=== PATIENT | female | born 1940 | race Caucasian/White ===

== ENCOUNTER 2021-12-10 11:15 | Outpatient (RCR) | payer MEDICARE, OTHER, SELFPAY | END 2022-06-11 10:53 | disposition home or self-care (01) | PROVIDERS: PCP Family Medicine; Visit Provider Orthopaedic Surgery | DX: M25.572 Pain in left ankle and joints of left foot (principal); R26.9 Unspecified abnormalities of gait and mobility; Z51.89 Encounter for other specified aftercare | CPT/HCPCS: 97110; 97140 ==

== ENCOUNTER 2022-01-25 10:48 | Outpatient (CLI) | payer MEDICARE, OTHER, SELFPAY ==
--- OUTSIDE RECORDS SUMMARY | 2022-01-25 10:51 | XMS_ITS | Encounter Summary ---
:1940 Author Organization [facility] Address [address] [place] [address] Care Team Providers Name Role Phone Unavailable Primary Care Provider Unavailable Reason for Visit Outpatient (Routine) - Closed Specialty Diagnoses / Procedures Referred By Contact Refer red To Contact Ophthalmology Laura Ho M.D . [place] [address] [place], [place] [address] Referral ID Status Reason Start Date Expiration Date Visits Requ ested Visits Authorized [id number] Closed 06/15/2021 06/15/2022 1 1 Encounter Details Date Type Department Care Team Description 12/03/2021 Office Visit Department of Softing [place], Nonexudativ e Ophthalmology in Keeley Hernandez O.D. Age-Related Macular [place], [place] [address] [facility] Degeneration Early [address] [place], [place] [address] (Primary Dx) [id number] Social History Tobacco Use Types Packs/Day Years Used Date Smoking Tobacco: Never Smokeless Tobacco: Never Alcohol Habits Answer Date Recorded How often do you have a drink containing alcohol? Monthly or less 05/10/2021 How many drinks containing alcohol do you have on a 1 or 2 05/10/2021 typical day when you are drinking? How often do you have six or more drinks on one Never 05/10/2021 occasion? Comment: Not asked Social Isolation Answer Date Recorded In a typical week, how many times do you More than three yen es a week 05/10/2021 talk on the phone with family, friends, or neighbors? How often do you get together with friends Twice a week 05/10/2021 or relatives? How often do you attend druze or 1 to 4 times per year 12/2021 nondenominational services? Do you belong to any clubs or Yes 05/10/2021 organizations such as druze groups, unions, fraternal or athletic groups, or school groups? How often do you attend meetings of the More than 4 times pe r year 05/10/2021 clubs or organizations you belong to? Are you now , , , 05/10/2021 , never or living with a partner? Physical Activity Answer Date Recorded On average, how many days per week do you engage in moderate to 2 days 05/10/2021 strenuous exercise (like walking fast, running, jogging, dancing, swimming, biking, or other activities that cause a light or heavy sweat)? On average, how many minutes do you engage in exercise at th is 30 min 05/10/2021 level? Stress Answer Date Recorded Do you feel stress - tense, restless, nervous, or Only a lit tle 05/10/2021 anxious, or unable to sleep at night because your mind is troubled all the time - these days? Financial Resource Strain Answer Date Recorded How hard is it for you to pay for the very basics like Not h ana m at all 05/10/2021 food, housing, medical care, and heating? Intimate Partner Violence Answer Date Recorded Within the last year, have you been afraid of your partner o r No 05/10/2021 ex-partner? Within the last year, have you been humiliated or emotionall y No 05/10/2021 abused in other ways by your partner or ex-partner? Within the last year, have you been kicked, hit, slapped, or No 05/10/2021 otherwise physically hurt by your partner or ex-partner? Within the last year, have you been raped or forced to have any No 05/10/2021 kind of sexual activity by your partner or ex-partner? Food Insecurity Answer Date Recorded Within the past 12 months, you worried that your food would Never true 05/10/2021 run out before you got money to buy more. Within the past 12 months, the food you bought just didn't N ever true 05/10/2021 last and you didn't have money to get more. Transportation Needs Answer Date Recorded In the past 12 months, has lack of transportation kept you f rom No 05/10/2021 medical appointments or from getting medications? In the past 12 months, has lack of transportation kept you f rom No 05/10/2021 meetings, work, or getting things needed for daily living? Housing Stability Answer Date Recorded In the last 12 months, was there a time when you were not ab le No 05/10/2021 to pay the mortgage or rent on time? In the last 12 months, how many places have you lived? 2 05/10/2021 In the last 12 months, was there a time when you did not hav e a No 05/10/[address] to [address] or slept in a senior care (including now)? Education Answer Date Recorded What is the highest level of school you have Some college, n o degree 05/10/2021 completed or the highest degree you have received? 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 - 12/03/2021 10:00 AM CDT Shannan Smallwood was seen today for age-related macular degeneration. 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 No fluid seen on either eye today, vision stable Plan 11/2021 Use artificial tears while reading. Follow-up in 5 months with OCT both eyes with Dr Cuellar/retina PLEASE SCHEDULE ANYTIME AFTER 11AM. - monitor for wet age-related macular degeneration recurrence documented in this encounter Plan of Treatment Not on filedocumented as of this encounter Visit Diagnoses Diagnosis Nonexudative Age-Related Macular Degener ation Early Dry Stage Bilateral - Primary documented in this encounter
--- OUTSIDE RECORDS SUMMARY | 2022-01-25 10:51 | XMS_ITS | Encounter Summary ---
:1940 Author Organization [facility] Address [address] [place] [address] Care Team Providers Name Role Phone Unavailable Primary Care Provider Unavailable Encounter Details Date Type Department Care Team Description 09/17/2021 Clinical Communication Department of Polo Beckham, Ophthalmology in Keeley Hernandez O.D. [place], [place] [address] [facility] [address] [place] [id number] [phone] Social History Tobacco Use Types Packs/Day Years [...] or relatives? How often do you attend buddhist or 1 to 4 times per year 12/2021 mandaen services? Do you belong to any clubs or Yes 05/10/2021 organizations such as buddhist groups, unions, fraternal or athletic groups, or [...] minutes do you engage in exercise at is 30 min 05/10/2021 level? Stress Answer [...] place to sleep or slept in a skilled nursing (including now)? Education Answer Date Recorded What is the highest level of school you have Some college, n o degree 05/10/2021 completed or the highest degree you have received? 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 If anything opens up let pt know Thanks documented in this encounter Plan of Treatment Not on filedocumented as of this encounter Visit Diagnoses Not on filedocumented in this encounter
--- OUTSIDE RECORDS SUMMARY | 2022-01-25 10:51 | XMS_ITS | Clinical Summary ---
:1940 Author Organization [facility] [place] [address] Care Team Providers Name Role Phone Elbert Jameson Primary Care Provider Unavailable Allergies Active Allergy Reactions Severity Noted Date Comments Amoxicillin Nausea Only 05/12/2021 nausea Crab GI Upset, Headache 08/01/1975 Shellfish Derived GI Upset 09/14/2013 Medications Medication Sig Dispensed Refills Start End Date Status Date calcium carbonate Take 1 Tablet by 0 Active (OS-LILLY 500) 500 mg mouth once daily. calcium (1,250 mg) tablet diclofenac topical Apply 1 Inch 0 Active (VOLTAREN) 1 % gel topically to 0 affected area(s) 4 times daily. vitamin e 400 unit Take 400 units by 0 Active capsule mouth once daily. aspirin (ECOTRIN) 81 mg Take 1 Tablet (81 0 07/01/19 2 Active enteric coated tablet mg) by mouth once 2 daily with a meal. atorvastatin (LIPITOR) Take 1 Tablet (10 90 Tablet 3 Active 10 mg tabletIndications: mg) by mouth once 2 Hypercholesterolemia daily. lisinopriL (PRINIVIL; Take 1 Tablet (30 90 Tablet 3 Active ZESTRIL) 30 mg mg) by mouth once 2 tabletIndications: HTN daily. (hypertension) verapamil SR (CALAN SR) Take 1 Tablet (120 90 Tablet 3 02 Active 120 mg Sustained-Release mg) by mouth once 2 tabletIndications: HTN daily with a meal. (hypertension), Mild For hypertension mitral valve prolapse levothyroxine Take 1 Tablet (100 90 Tablet 3 Active (SYNTHROID) 100 mcg mcg) by mouth once 2 tabletIndications: daily. For Hypothyroidism hypothyroidism (acquired) famotidine (PEPCID) 40 Take 1 Tablet (40 180 Tablet 3 11/18/19 2 Active mg tabletIndications: mg) by mouth in 2 Chronic GERD the morning and 1 Tablet (40 mg) in the evening. For GERD. cetirizine (ZYRTEC) 10 Take 1 Tablet (10 90 Tablet 3 Active mg tabletIndications: mg) by mouth once 2 Allergic rhinitis, daily. For unspecified seasonality, allergic rhinitis unspecified trigger polyethylene Drink up to 7 8000 mL 0 Act mateo glycol-electrolyte liters the day 2 (GOLYTELY) before the [id number] -5.86 procedure (until gram no solid or liquid suspensionIndications: stool present) and Positive colorectal 1 liter 6 hours cancer screening using prior. Cologuard test Active Problems Problem Noted Date History of malignant melanoma 07/16/2021 History of cervical cancer 07/16/2021 CVA (cerebral vascular accident) 06/30/2021 HTN (hypertension) 06/26/2021 Post herpetic neuralgia 06/26/2021 Hypothyroidism (acquired) 06/26/2021 Chronic GERD 06/26/2021 Hypercholesterolemia 06/26/2021 Nonexudative age-related macular degeneration 06/15/19 Mild mitral valve prolapse 06/25/2014 Peripheral vertigo involving left ear 06/25/2014 Allergic rhinitis 06/25/2014 Encounters Date Type Specialty Care Team Description 01/22/2022 Nurse/Clinic Staff Only covi d test (Pre op) 01/22/2022 Travel 12/30/2021 Telephone Elbert Jameson Appointme nt Reminder (Colonoscopy) 12/23/2021 Orders Only Scanner <No scans attac hed> 12/02/2021 Telephone Ifeoma Whitley Colorectal Cancer MD Nery Screening (Shandon guard sample could no t be processed ) 11/19/2021 Telephone Ifeoma Whitley Form MD Nery 11/17/2021 Telemedicine Ifeoma Whitley Telehealth (No vitals MD Nery taken); Follow Up; Medication Patsy gement; Ankle Injury (L eft ankle fracture, DOI: 07/24/21); Knee Pain/problem (L eft knee swelling a nd pain, appointme nt with Dr. Benjamin 11/23) 11/14/2021 Travel from Last 3 Months Immunizations Name Administration Dates Next Due COVID-19 vaccine (Moderna 100mcg/0.5mL) 05/14/2021, 06/27/19 21, 05/30/2020 PF, MDV Influenza, High-dose Quadrivalent 05/14/2021, 01/08/2020 Inactivated Pneumococcal Poly,23-Valent (Pneumovax) 07/21/2013, 04/12/20 12 Pneumococcal conj 13-Valent (Prevnar 13) 07/30/2014 Tdap 07/30/2014 Zoster (Shingrix-RZV, recombinant) 10/15/2019, 07/08/2019, 0 06/02/2019 Family History Medical History Relation Name Comments Coronary artery disease Father Heart attack Father Hyperlipidemia Father Stroke Father Cancer-breast Mother Good Health Sister Relation Name Status Comments Father Mother Sister Alive Social History Tobacco Use Types Packs/Day Years Used Date Never Smoker Smokeless Tobacco: Never Used Alcohol Use Standard Drinks/Week Comments Not Currently 0 (1 standard drink = 0.6 oz pure alcoho l) Sex Assigned at Date Recorded Not on file COVID-19 Exposure Response Date Recorded In the last 10 days, have you been in contact with No / Unsu re 01/22/2022 9:24 AM CDT someone who was confirmed or suspected to have Coronavirus/COVID-19? 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 Height 166.4 cm (5' 5.5) 06/30/2021 1:59 PM MASTER CRAFTSMAN Body Mass Index 30.63 06/30/2021 1:59 PM MASTER CRAFTSMAN Plan of Treatment Health Maintenance Due Date Last Done Comments Hepatitis C screening for age 18-79 1958 COVID-19 vaccine series (4 - Booster 09/11/2021 05/14/2021, 06/27/2020, for Moderna series) 05/30/2020 Influenza for age 65+ 12/31/2021 05/14/2021, 01/08/2020 BMI (ht and wt on same day) for age 0306/30/2022 06/30/2021 18+ Medicare Wellness for age 65+ 06/30/2022 06/30/2021 Depression screening for age 12+ 07/01/2022 07/01/2021, 05/2021 Tetanus booster 07/30/2024 07/30/2014 Pneumococcal series for age 65+ Completed 07/30/2014, 07/01, 04/12/2012 Tdap Completed 07/30/2014 Zoster (shingles) series for age 50+ Completed 10/15/2019, 07/08/2019, 06/02/2019 DEXA/DXA scan for age 65+ Completed 07/01/2021 Procedures Procedure Name Priority Date/Time Associated Diagnosis Comme nts COVID 19 Routine 01/22/2022 9:30 AM Preop examination Resu lts for this CDT procedure are i n the results section. COVID 19 COLLECTION Routine 01/22/2022 9:30 AM Preop examinati on Results for this CDT procedure are i n the results section. SCAN-FECAL TEST DNA 12/23/2021 12:00 (COLOGUARD) AM CDT from Last 3 Months Results COVID 19 (01/22/2022 9:30 AM CDT) Analysis Performed At Patho logist Time Signature COVID 19 Negative Negative 01/23/2022 [facility] 7[facility]19 PM CDT LAB[facility] Specimen Anatomical Location / Collection Method Collection David e Received Time (Source) Laterality / Volume Other SPECIMEN FROM Non-Blood / 01/22/2022 9:30 01/23/2022 7:59 NASOPHARYNGEAL Unknown AM CDT AM CDT STRUCTURE / Unknown Narrative [facility] One[facility] On Me (NOOM) LABORATORY-CENTRAL LABORAT ORY - 01/23/2022 7:19 PM CDT All PCR tests are subject to false negative result due to variability in viral load and collection te chnique. A negative result does not rule out a SARS-CoV-2 infection. Clinical correlation required. This test has been authorized by FDA und er an Emergency Use Authorization (EUA). This test is only authorized for the duration of time the declaration that circumstances exist justifying the authorizati on of the emergency use of in vitro diag nostic tests for detection of SARS-CoV-2 virus and/or diagnosis of COVID-19 infection under section 564(b)(1) of the Act, 21 U.S.C. 360bbb-3(b) (1), unless the authorization is terminated or revoked sooner. Yordy Wyatt MD MICROBIOLOGY Performing Organization Address City/[facility]/ZIP Code Phon e Number [id number] [place] [id number] LABORATORY-CENTRAL 2000 LABORATORY COVID 19 COLLECTION (01/22/2022 9:30 AM CDT) [facility] Method Time Signature TESTING [facility] [employer] 01/23/2022 [facility] Laboratory 7:59 AM CDT LABORATORY-CE NTRAL LABORATORY Comment: Specimen submitted to [facility] for testing. Specimen Anatomical Location / Collection Method Collection David e Received Time (Source) Laterality / Volume Other SPECIMEN FROM Non-Blood / 01/22/2022 9:30 01/22/2022 NASOPHARYNGEAL Unknown AM CDT 10:09 AM CDT STRUCTURE / Unknown Yordy Wyatt MD SEND OUTS Performing Organization Address [facility] Phon e Number [id number] [place] [id number] LABORATORY-CENTRAL 2000 LABORATORY SCAN-FECAL TEST DNA (COLOGUARD) (12/23/2021 12:00 AM CDT) Narrative This result has an attachment that is no t available. Scanner OTHER from Last 3 Months Insurance Payer Benefit Plan / Subscriber ID Effective Dates Phone Addre ss Type Group MEDICARE - PB MEDICARE PB [id number] 2007-Present ATT N: CLAIMS USE ONLY ONLY [address] [place] [address] FOR [id number] 2015-Present [address] [place] [address] Care Teams Optical Instrument Assembler Relationship Specialty Start Date End Date Elbert Jameson PCP - General 06/23/21
--- OUTSIDE RECORDS SUMMARY | 2022-01-25 10:51 | XMS_ITS | Encounter Summary ---
:1940 Author Organization [facility] Address [address] [place] [address] Care Team Providers Name Role Phone Unavailable Primary Care Provider Unavailable Reason for Visit Reason Comments Pre-visit Testing Orders Appointment Encounter Details Date Type Department Care Team Description 04/13/2021 Clinical Department of Laura Ho Pre-visit Inez rebolledo Communication Ophthalmology in Peng Cordero Orders; [place], [place] [address] [facility] Appointment [address] [place] [phone] [phone] Social History Tobacco Use Types Packs/Day Years Used Date Smoking Tobacco: Never Assessed Alcohol Habits Answer Date Recorded How often [...] or relatives? How often do you attend congregation or 1 to 4 times per year 12/2021 mormonism services? Do you belong to any clubs or Yes 05/10/2021 organizations such as congregation groups, unions, fraternal or athletic groups, or [...] place to sleep or slept in a mcc (including now)? 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 HOUSE ASSOCIATE Telephone Encounter - Raul Chery - 04/14/2021 4:45 PM CST Aide Ho, Currently there is no available testing to make this week work. I spoke with patient and they indicated 05/11 would work for testing and 05/12 would work to see you. Can I schedule for that timeframe? Thanks! - AJ HOUSE ASSOCIATE Telephone Encounter - Raul Chery - 04/14/2021 10:03 AM CST Aide Ho, Scheduling will not fit within 10 Day SOP Guideline. Should I schedule 1st available or do you have a different preference? Thanks! - AJ HOUSE ASSOCIATE Telephone Encounter - Shalini Mayen COMT - 04/14/2021 9:51 AM CST Orders are in. It's okay to click the high importance button for a new referred wet age-related macular degeneration. Thanks. HOUSE ASSOCIATE Telephone Encounter - Raul Chery - 04/13/2021 4:39 PM CST The following tests need order proxies for Indication for the order: Degeneration Macular Wet Exudative The following eye(s) affected: Left FA [place]; Fundus Standard; OCT Spectralis Please reply to me when order is placed. Thank you! Check the patient's chart to verify if this would be a first Fluoresceine Angiogram (FA). Ask each NEW patient and any RETURN patients that do not have these questions/responses documented in the chart: 1. Have you been diagnosed with Kidney Disease? Yes - Patient is currently in stage 3 Kidney Failurewith elevated levels staying the same. 2. Are you on dialysis? No HOUSE ASSOCIATE documented in this encounter Plan of Treatment Not on filedocumented as of this encounter Visit Diagnoses Not on filedocumented in this encounter
--- OUTSIDE RECORDS SUMMARY | 2022-01-25 10:51 | XMS_ITS | Encounter Summary ---
:1940 Author Organization [facility] Address [address] [place] [address] Care Team Providers Name Role Phone Unavailable Primary Care Provider Unavailable Encounter Details Date Type Department Care Team Description 05/11/2021 Ancillary Department of Laura Ho Exudjennifer Procedure Ophthalmology bryanna Cordero M.D. Age-Related Macular [place], [place] [address] [email or web address] Degeneration [address] [place], [place] [address] Right ([facility]) [phone] Social History Tobacco Use Types Packs/Day Years [...] or relatives? How often do you attend sabianism or 1 to 4 times per year 12/2021 confucianist services? Do you belong to any clubs or Yes 05/10/2021 organizations such as sabianism groups, unions, fraternal or athletic groups, or [...] for the very basics like Not h aan m at all 05/10/2021 food, housing, medical [...] place to sleep or slept in a penitentiary (including now)? Education Answer Date Recorded What is the highest level of school you have Some college, n o degree 05/10/2021 completed or the highest degree you have received? 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 documented in this encounter Results Optical Coherence Tomography (OCT) - Macula/Retina - OU - Both Eyes (05/11/2021 4:24 PM CANDY VENDOR) Specimen (Source) Anatomical Location Collection Method / Collectio n Time Received Time / Laterality Volume Narrative OPHTHALMOLOGY IMAGING EXAM - 05/12/19 3:01 PM CANDY VENDOR Right Eye Reliability was good. OCT device used [employer] . Left Eye Reliability was good. OCT device used [employer] . Notes OCT macula 05/11/21: RE: drusen, no fluid LE: drusen, drusenoid PED, no fluid Laura Ho M.D. OPHTH TOMOGRAPHY Performing Organization Address City/State/ZIP Code Phon e Number OPHTHALMOLOGY IMAGING EXAM documented in this encounter Visit Diagnoses Diagnosis Exudative Age-Related Macular Degenerati on Unspecified Stage Right (HCC) documented in this encounter
--- OUTSIDE RECORDS SUMMARY | 2022-01-25 10:51 | XMS_ITS | Encounter Summary ---
:1940 Author Organization [facility] Address [address] [place] [address] Care Team Providers Name Role Phone Unavailable Primary Care Provider Unavailable Encounter Details Date Type Department Care Team Description 05/11/2021 Procedure visit Department of Bakdonnell, Laura Cordero M.D. [address] [place] [phone] Exudative Age-Related Ophthalmology in [place] Macular Degeneration [place], [place] Unspecified Stage [address] [facility] Right ([facility] [place] [address] Social History Tobacco Use Types Packs/Day Years [...] or relatives? How often do you attend advent or 1 to 4 times per year 12/2021 protestant services? Do you belong to any clubs or Yes 05/10/2021 organizations such as advent groups, unions, fraternal or athletic groups, or [...] place to sleep or slept in a fdc (including now)? Education Answer Date Recorded What is the highest level of school you have Some college, n o degree 05/10/2021 completed or the highest degree you have received? Sex Assigned at Date Recorded Female 05/10/2021 3:14 PM BIBLE TEACHER documented as of this encounter Progress Notes Peter Bloom - 05/11/2021 2:00 PM CST Patient was assessed for Angiogram. Verified education and informed consent has been completed. Patient fits discharge criteria; patient sent to have IV removed. Dr. RODRIGUEZ is the authorizing prescriber who directed the protocol. Patient's creatinine level is NA Adverse reaction noted: NONE. E TEACHER documented in this encounter Plan of Treatment Not on filedocumented as of this encounter Procedures Procedure Name Priority Date/Time Associated Diagnosis Comme nts ANGIOGRAPHY - OS - Routine 05/11/2021 4:24 PM Exudative Age-Re lated Results for this LEFT EYE BIBLE TEACHER Macular Degeneration procedu re are in Unspecified Stage the result s Right (HCC) section. documented in this encounter Results Fluorescein Angiography - OS - Left Eye (05/11/2021 4:24 PM BIBLE TEACHER) Specimen (Source) Anatomical Location Collection Method / Collectio n Time Received Time / Laterality Volume Narrative OPHTHALMOLOGY IMAGING EXAM - 05/12/19 22 8:41 AM BIBLE TEACHER Dye used is fluorescein. Fluorescein dose given is half dose. Notes See clinical note from 05/12/2021 ??for i nterpretation. Laura Rodriguez MD Laura Rodriguez M.D. OPHTH PHOTOGRAPHY Performing Organization Address City/State/ZIP Code Phon e Number OPHTHALMOLOGY IMAGING EXAM documented in this encounter Visit Diagnoses Diagnosis Exudative Age-Related Macular Degenerati on Unspecified Stage Right (HCC) Exudative Age-Related Macular Degenerati on Unspecified Stage Right (HCC) - Primary documented in this encounter Administered Medications Inactive Administered Medications - up to 3 most recent administrations Medication Order MAR Action Action Date Dose Rate Site fluorescein 500 mg/5 mL (10 %) Given 05/11/2021 4:06 PM BIBLE TEACHER 250 mg injection 250 mg (AK-FLUOR/FLUORESCEIN) 250 mg, intravenous, Once in imaging, contrast, Starting on Tue04/14/21 at 0950, For 1 dose, IV push over 5 - 10 seconds sodium chloride 0.9 % injection 3 mL Given 05/11/2021 4:05 PM BIBLE TEACHER 3 mL 3 mL, intravenous, Once, On Tue05/11/21 at 0000, For 1 dose, Frequency: As needed for line care, Peripheral Intravenous Catheter and Rapid Infusion Catheter documented in this encounter
--- OUTSIDE RECORDS SUMMARY | 2022-01-25 10:51 | XMS_ITS | Encounter Summary ---
:1940 Author Organization [facility] Address [address] [place] [address] Care Team Providers Name Role Phone Unavailable Primary Care Provider Unavailable Encounter Details Date Type Department Care Team Description 05/11/2021 Silent Schedule Department of Ophthalmology Arelis Ho in [facility] Khoury [address] [facility] [address] [place], [place] [phone] [place], [place] [phone] (Wo rk) Social History Tobacco Use Types Packs/Day Years [...] or relatives? How often do you attend bahai or 1 to 4 times per year 12/2021 judaism services? Do you belong to any clubs or Yes 05/10/2021 organizations such as bahai groups, unions, fraternal or athletic groups, or [...] place to sleep or slept in a intermediate (including now)? Education Answer Date Recorded What is the highest level of school you have Some college, n o degree 05/10/2021 completed or the highest degree you have received? Sex Assigned at Date Recorded Female 05/10/2021 3:14 PM CLOTHING CONSULTANT documented as of this encounter Plan of Treatment Not on filedocumented as of this encounter Procedures Procedure Name Priority Date/Time Associated Diagnosis Comme nts ANGIOGRAPHY - OD - Routine 05/11/2021 4:24 PM Exudative Age-Re lated Results for this RIGHT EYE CLOTHING CONSULTANT Macular Degeneration procedu re are in Unspecified Stage the result s Right (HCC) section. documented in this encounter Results Fluorescein Angiography - OD - Right Eye (05/11/2021 4:24 PM CLOTHING CONSULTANT) Specimen (Source) Anatomical Location Collection Method / Collectio n Time Received Time / Laterality Volume Narrative OPHTHALMOLOGY IMAGING EXAM - 05/12/19 22 8:41 AM CLOTHING CONSULTANT Dye used is fluorescein. Fluorescein dose given is half dose. Notes See clinical note from 05/12/2021 ??for i nterpretation. Laura Ho MD Laura Ho M.D. OPHTH PHOTOGRAPHY Performing Organization Address City/State/ZIP Code Phon e Number OPHTHALMOLOGY IMAGING EXAM documented in this encounter Visit Diagnoses Not on filedocumented in this encounter
--- OUTSIDE RECORDS SUMMARY | 2022-01-25 10:51 | XMS_ITS | Encounter Summary ---
:1940 Author Organization [facility] Address [address] [place] [address] Care Team Providers Name Role Phone Unavailable Primary Care Provider Unavailable Encounter Details Date Type Department Care Team Description 04/20/2021 Orders Only Department of Mamie Dos Santos Exudative Age-Related Ophthalmology in K Macular Degeneration With [place], [place] [address] [facility] Active Choroidal [address] [place], [place] [address] ([facility]ERLY [facility]) (Primary Dx) [phone] Social History Tobacco Use Types Packs/Day Years [...] or relatives? How often do you attend uatsdin or 1 to 4 times per year 12/2021 buddhism services? Do you belong to any clubs or Yes 05/10/2021 organizations such as uatsdin groups, unions, fraternal or athletic groups, or [...] place to sleep or slept in a fci (including now)? 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
--- OUTSIDE RECORDS SUMMARY | 2022-01-25 10:51 | XMS_ITS | Encounter Summary ---
:1940 Author Organization [facility] Address [address] [place] [address] Care Team Providers Name Role Phone Unavailable Primary Care Provider Unavailable Encounter Details Date Type Department Care Team Description 12/03/2021 Ancillary Department of Laura Ho Procedure Ophthalmology in Peng Cordero Age-Related Macular [place], [place] [address] [facility] Degeneration Early [address] [place], [place] [phone] Social History Tobacco Use Types Packs/Day Years [...] or relatives? How often do you attend catholic or 1 to 4 times per year 12/2021 zoroastrian services? Do you belong to any clubs or Yes 05/10/2021 organizations such as catholic groups, unions, fraternal or athletic groups, or [...] place to sleep or slept in a chcf (including now)? Education Answer Date Recorded What is the highest level of school you have Some college, n o degree 05/10/2021 completed or the highest degree you have received? Sex Assigned at Date Recorded Female 05/10/2021 3:14 PM BMW SALES CONSULTANT documented as of this encounter Plan of Treatment Not on filedocumented as of this encounter Procedures Procedure Name Priority Date/Time Associated Diagnosis Comme nts OPTICAL COHERENCE Routine 12/03/2021 11:08 Nonexudative Result s for this TOMOGRAPHY - AM CDT Age-Related Macular procedur e are in MACULA/RETINA - OU Degeneration Early the results - BOTH EYES Dry Stage Bilateral section. documented in this encounter Results Optical Coherence Tomography (OCT) - Macula/Retina - OU - Both Eyes (12/03/2021 11:08 AM CDT) Specimen (Source) Anatomical Location Collection Method / Collectio n Time Received Time / Laterality Volume Narrative OPHTHALMOLOGY IMAGING EXAM - 12/04/19 22 11:43 AM CDT Right Eye Reliability was good. OCT device used Startlocal . Left Eye Reliability was good. OCT device used Startlocal . Notes See note for results Laura Ho M.D. OPHTH TOMOGRAPHY Performing Organization Address City/State/ZIP Code Phon e Number OPHTHALMOLOGY IMAGING EXAM documented in this encounter Visit Diagnoses Diagnosis Nonexudative Age-Related Macular Degener ation Early Dry Stage Bilateral documented in this encounter
--- OUTSIDE RECORDS SUMMARY | 2022-01-25 10:51 | XMS_ITS | Encounter Summary ---
:1940 Author Organization [facility] Address [address] [place] [address] Care Team Providers Name Role Phone Unavailable Primary Care Provider Unavailable Reason for Referral Outpatient (Routine) - Closed Specialty Diagnoses / Procedures Referred By Contact Refer red To Contact Ophthalmology Laura Ho M.D . [facility] [address] [place] [phone] Referral ID Status Reason Start Date Expiration Date Visits Requ ested Visits Authorized [id number] Closed 06/15/2021 06/15/2022 1 1 Scheduling Instructions Follow-up in 6-8 weeks with OCT both eye s with Dr Cuellar - COORDINATOR Reason for Visit Reason Comments Retina Follow Up Outpatient (Routine) - Closed Specialty Diagnoses / Procedures Referred By Contact Refer red To Contact Ophthalmology Belem Valentine M.D. [facility] Referral ID Status Reason Start Date Expiration Date Visits Requ ested Visits Authorized [id number] Closed 05/12/2021 05/12/2022 1 1 Encounter Details Date Type Department Care Team Description 06/15/2021 Office Visit Department of Laura Ho, Nonexudati ve Age-Related Macular Degeneration Early Dry Stage Bilateral (Primary Dx); Ophthalmology in [place].F[place] Exudative Age-Related Macular Degenerati on Unspecified Stage Right (HCC) [place], [place] [address] [facility] [address] [place] [phone] Social History Tobacco Use Types Packs/Day Years [...] or relatives? How often do you attend mandaeism or 1 to 4 times per year 12/2021 mandaeism services? Do you belong to any clubs or Yes 05/10/2021 organizations such as mandaeism groups, unions, fraternal or athletic groups, or [...] or slept in a fci (including now)? Education Answer Date Recorded What is the highest level of school you have Some college, n o degree 05/10/2021 completed or the highest degree you have received? Sex Assigned at Date Recorded Female 05/10/2021 3:14 PM GIS COORDINATOR documented as of this encounter Patient Instructions Patient InstructionsLaura Ho M.D. - 06/15/2021 8:45 AM CST You have been diagnosed with age-related macular degeneration. We recommend the following diet and lifestyle modifications: Lifestyle modifications We recommend a good healthy diet, green leafy vegetables, fresh fruit, fish, eggs (occasionally), nuts, and avoidance of processed or high-fat foods. Avoid smoking or second hand smoke. Wear sunglassesor a hat for protection from sunlight. Regular activities and/or exercise are helpful. Vitamin Supplements The AREDS-2 supplement contains vitamins C, E, Zinc, Copper, lutein and zeaxanthin. Fish oil supplements have not been shown to be helpful at slowing progression of age-related macular degeneration. Vision testing at home I also recommend testing your vision monocularly (one eye at at time) at least one time per week. Todo this, simply cover one eye while you read or look at something such as the Tuesday newspaper. Then, cover the other eye and do the same thing. This way, you may detect changes in one eye that are difficult to recognize when both eyes are open. You may find the following information useful: https://www.[facility].org/diseases-conditions/mch-wslypru-mfbvtynmghcg/symptoms -causes/syc-88599481 https://www.[facility].org/diseases-conditions/xvo-xrgxxhq-wlsvqpgvimid/symptoms -causes/syc-24353128 https://www.Footbalisticube.com/watch?v=dmoi8ouuTgY https://nei.nih.gov/health/maculardegen/armd_facts https://www.asrs.org/content/documents/fact_sheet_16_amd_new.pdf COORDINATOR documented in this encounter Progress Notes Laura Ho M.D. - 06/15/2021 8:45 AM CST Shannan Smallwood was seen today for age-related macular degeneration. OCT Macula: 06/15/21 RE: drusen, drusenoid PED, [...] of exudative age-related macular degeneration, right eye Treated with Avastin right eye q3 months Last Avastin right eye Dec 2020, she missed her injection due end of Apr [address] 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 No fluid on OCT today. Vision stable. Plan 06/15/21: Use artificial tears while reading. Follow-up in 6-8 weeks with OCT both eyes with Dr Cuellar - monitor for wet age- related macular degeneration recurrence COORDINATOR documented in this encounter Miscellaneous Notes Addendum Note - Debby Muniz, C.O.A. - 06/15/2021 8:45 AM GIS COORDINATOR Addended by: DEBBY MUNIZ on: 06/15/2021 09:23 AM Modules accepted: Orders COORDINATOR documented in this encounter Plan of Treatment Scheduled Referrals Name Type Priority Associated Order Schedule Diagnoses Ophthalmology office Outpatient Referral Routine Expected: visit (clinic) 08/03/2021 (Approximate), Expires: 09/12/2022 documented as of this encounter Results Optical Coherence Tomography (OCT) - Macula/Retina - OU - Both Eyes (12/03/2021 11:08 AM CDT) Specimen (Source) Anatomical Location Collection Method / Collectio n Time Received Time / Laterality Volume Narrative OPHTHALMOLOGY IMAGING EXAM - 12/04/19 11:43 AM CDT Right Eye Reliability was good. OCT device used Calixar . Left Eye Reliability was good. OCT device used Calixar . Notes See note for results Laura Ho M.D. OPHTH TOMOGRAPHY Performing Organization Address City/State/ZIP Code Phon e Number OPHTHALMOLOGY IMAGING EXAM documented in this encounter Visit Diagnoses Diagnosis Nonexudative Age-Related Macular Degener ation Early Dry Stage Bilateral - Primary Exudative Age-Related Macular Degenerati on Unspecified Stage Right (HCC) Nonexudative Age-Related Macular Degener ation Early Dry Stage Bilateral documented in this encounter
--- OUTSIDE RECORDS SUMMARY | 2022-01-25 10:51 | XMS_ITS | Encounter Summary ---
:1940 Author Organization [facility] Address [address] [place] [address] Care Team Providers Name Role Phone Unavailable Primary Care Provider Unavailable Encounter Details Date Type Department Care Team Description 06/15/2021 Ancillary Department of Belem Valentine Nonexudative Procedure Ophthalmology in M.D. Age-Related Macular [place], [place] Degeneration Early [address] [facility] [place] [address] Social History Tobacco Use Types Packs/Day Years [...] or relatives? How often do you attend caodaism or 1 to 4 times per year 12/2021 samaritan services? Do you belong to any clubs or Yes 05/10/2021 organizations such as caodaism groups, unions, fraternal or athletic groups, or [...] place to sleep or slept in a alf (including now)? Education Answer Date Recorded What is the highest level of school you have Some college, n o degree 05/10/2021 completed or the highest degree you have received? Sex Assigned at Date Recorded Female 05/10/2021 3:14 PM DOG TRAINER documented as of this encounter Plan of Treatment Not on filedocumented as of this encounter Procedures Procedure Name Priority Date/Time Associated Diagnosis Comme nts OPTICAL COHERENCE Routine 06/15/2021 8:28 AM Nonexudative Resu lts for this TOMOGRAPHY - DOG TRAINER Age-Related Macular procedur e are in MACULA/RETINA - OU Degeneration Early the results - BOTH EYES Dry Stage Bilateral section. documented in this encounter Results Optical Coherence Tomography (OCT) - Macula/Retina - OU - Both Eyes (06/15/2021 8:28 AM DOG TRAINER) Specimen (Source) Anatomical Location Collection Method / Collectio n Time Received Time / Laterality Volume Narrative OPHTHALMOLOGY IMAGING EXAM - 06/15/19 9:14 AM DOG TRAINER Right Eye Reliability was good. OCT device used PeekYou SpectralJacked . Left Eye Reliability was good. OCT device used [employer]ekYou Spectralis . Notes See clinical note for interpretation. Belem Valentine M.D. OPHTH TOMOGRAPHY Performing Organization Address City/State/ZIP Code Phon e Number OPHTHALMOLOGY IMAGING EXAM documented in this encounter Visit Diagnoses Diagnosis Nonexudative Age-Related Macular Degener ation Early Dry Stage Bilateral documented in this encounter
--- OUTSIDE RECORDS SUMMARY | 2022-01-25 10:51 | XMS_ITS | Encounter Summary ---
:1940 Author Organization [facility] Address [address] [place] [address] Care Team Providers Name Role Phone Unavailable Primary Care Provider Unavailable Encounter Details Date Type Department Care Team Description 05/11/2021 Ancillary Department of Laura Ho Procedure Ophthalmology bryanna Cordero M.D. Age-Related Macular [place], [place] [address] [facility] Degeneration [address] [place], [place] [address] Right (HCC) (Primary [id number] Dx) Social History Tobacco Use Types Packs/Day Years [...] or relatives? How often do you attend pentecostal or 1 to 4 times per year 12/2021 synagogue services? Do you belong to any clubs or Yes 05/10/2021 organizations such as pentecostal groups, unions, fraternal or athletic groups, or [...] place to sleep or slept in a mcfp (including now)? Education Answer Date Recorded What is the highest level of school you have Some college, n o degree 05/10/2021 completed or the highest degree you have received? Sex Assigned at Date Recorded Female 05/10/2021 3:14 PM ANALYSIS EVALUATOR documented as of this encounter Plan of Treatment Not on filedocumented as of this encounter Procedures Procedure Name Priority Date/Time Associated Diagnosis Comme nts ANGIOGRAPHY - OS - Routine 05/11/2021 4:24 PM Exudative Age-Re lated Results for this LEFT EYE ANALYSIS EVALUATOR Macular Degeneration procedu re are in Unspecified Stage the result s Right ([facility]) section. ANGIOGRAPHY - OD - Routine 05/11/2021 4:24 PM Exudative Age-Re lated Results for this RIGHT EYE ANALYSIS EVALUATOR Macular Degeneration procedu re are in Unspecified Stage the result s Right ([facility]) section. documented in this encounter Results Fluorescein Angiography - OD - Right Eye (05/11/2021 4:24 PM ANALYSIS EVALUATOR) Specimen (Source) Anatomical Location Collection Method / Collectio n Time Received Time / Laterality Volume Narrative OPHTHALMOLOGY IMAGING EXAM - 05/12/19 22 8:41 AM ANALYSIS EVALUATOR Dye used is fluorescein. Fluorescein dose given [...]
--- OUTSIDE RECORDS SUMMARY | 2022-01-25 10:51 | XMS_ITS | Encounter Summary ---
:1940 Author Organization [facility] Address [address] [place] [address] Care Team Providers Name Role Phone Unavailable Primary Care Provider Unavailable Encounter Details Date Type Department Care Team Description 06/15/2021 Ancillary Procedure Department of Ophthalmology Social History Tobacco Use Types Packs/Day Years [...] or relatives? How often do you attend restoration or 1 to 4 times per year 12/2021 mandaen services? Do you belong to any clubs or Yes 05/10/2021 organizations such as restoration groups, unions, fraternal or athletic groups, or [...] at Date Recorded Female 05/10/2021 3:14 PM LEATHER STITCHER documented as of this encounter Plan of Treatment Not on filedocumented as of this encounter Procedures Procedure Name Priority Date/Time Associated Comments Diagnosis OPHTHALMOLOGY IMAGE Routine 06/15/2021 12:00 Resu lts for this EXAM AM LEATHER STITCHER procedure are i n the results section. documented in this encounter Results Eyes Spectralis OCT-Ophthalmology Image Exam (06/15/2021 12:00 AM LEATHER STITCHER) Specimen (Source) Anatomical Location Collection Method / Collectio n Time Received Time / Laterality Volume Narrative IIMS - 06/15/2021 8:31 AM LEATHER STITCHER This order has been created and auto-finalized to support the import of images acquired without order. The clini madyson documentation to support these images can be found on the encounter leta t produced images. Provider Not In System IMG NON RAD IMAGING PROCEDUR ES Performing Organization Address City/State/ZIP Code Phon e Number IIMS IIMS NA documented in this encounter Visit Diagnoses Not on filedocumented in this encounter
--- OUTSIDE RECORDS SUMMARY | 2022-01-25 10:51 | XMS_ITS | Encounter Summary ---
:1940 Author Organization [facility] Address [address] [place] [address] Care Team Providers Name Role Phone Unavailable Primary Care Provider Unavailable Reason for Referral Outpatient (Routine) - Closed Specialty Diagnoses / Procedures Referred By Contact Refer red To Contact Ophthalmology Belem Valentine M.D. [facility] Referral ID Status Reason Start Date Expiration Date Visits Requ ested Visits Authorized [id number] Closed 05/12/2021 05/12/2022 1 1 Scheduling Instructions Followup: 4-6 wks with OCT OU ROLLER Encounter Details Date Type Department Care Team Description 05/12/2021 Orders Only Department of Denisha Zavaleta Nonexudative Ophthalmology in [address] [facility] Age-Related Macular [place], [place] Degeneration Early Dry [address] [place] [phone] [place] [phone] (Primary Dx) Social History Tobacco Use Types Packs/Day [...] or relatives? How often do you attend presybeterian or 1 to 4 times per year 12/2021 presybeterian services? Do you belong to any clubs or Yes 05/10/2021 organizations such as presybeterian groups, unions, fraternal or athletic groups, or [...] place to sleep or slept in a jail (including now)? Education Answer Date Recorded What is the highest level of school you have Some college, n o degree 05/10/2021 completed or the highest degree you have received? Sex Assigned at Date Recorded Female 05/10/2021 3:14 PM LACE ROLLER documented as of this encounter Plan of Treatment Scheduled Referrals Name Type Priority Associated Order Schedule Diagnoses Ophthalmology office Outpatient Referral Routine Expected: visit (clinic) 06/02/2021 (Approximate), Expires: 08/10/2022 documented as of this encounter Results Optical Coherence Tomography (OCT) - Macula/Retina - OU - Both Eyes (06/15/2021 8:28 AM LACE ROLLER) Specimen (Source) Anatomical Location Collection Method / Collectio n Time Received Time / Laterality Volume Narrative OPHTHALMOLOGY IMAGING EXAM - 06/15/19 22 9:14 AM LACE ROLLER Right Eye Reliability was good. OCT device used Ber[employer]'s SpectralPow Health . Left Eye Reliability was good. OCT device used [employer] . Notes See clinical note for interpretation. Belem Valentine M.D. OPHTH TOMOGRAPHY Performing Organization Address City/State/ZIP Code Phon e Number OPHTHALMOLOGY IMAGING EXAM documented in this encounter Visit Diagnoses Diagnosis Nonexudative Age-Related Macular Degener ation Early Dry Stage Bilateral - Primary Nonexudative Age-Related Macular Degener ation Early Dry Stage Bilateral documented in this encounter
--- OUTSIDE RECORDS SUMMARY | 2022-01-25 10:51 | XMS_ITS | Encounter Summary ---
:1940 Author Organization [facility] Address [address] [place] [address] Care Team Providers Name Role Phone Unavailable Primary Care Provider Unavailable Encounter Details Date Type Department Care Team Description 05/11/2021 Ancillary Procedure Department of Ophthalmology Social History [...] or relatives? How often do you attend christian or 1 to 4 times per year 12/2021 latter-day services? Do you belong to any clubs or Yes 05/10/2021 organizations such as christian groups, unions, fraternal or athletic groups, or [...] at Date Recorded Female 05/10/2021 3:14 PM REED POLISHER documented as of this encounter Plan of Treatment Not on filedocumented as of this encounter Procedures Procedure Name Priority Date/Time Associated Comments Diagnosis OPHTHALMOLOGY IMAGE Routine 05/11/2021 12:10 Resu lts for this EXAM AM REED POLISHER procedure are i n the results section. documented in this encounter Results Eyes Spectralis FA-Ophthalmology Image Exam (05/11/2021 12:10 AM REED POLISHER) Specimen (Source) Anatomical Location Collection Method / Collectio n Time Received Time / Laterality Volume Narrative IIMS - 05/11/2021 4:26 PM REED POLISHER This order has been created and auto-finalized [...]
--- OUTSIDE RECORDS SUMMARY | 2022-01-25 10:51 | XMS_ITS | Encounter Summary ---
:1940 Author Organization [facility] Address [address] [place] [address] Care Team Providers Name Role Phone Unavailable Primary Care Provider Unavailable Reason for Referral Outpatient (Routine) - Authorized Specialty Diagnoses / Procedures Referred By Contact Refer red To Contact Ophthalmology Keeley Villarreal [address] [place] O.D. [address] [place] [address] Referral ID Status Reason Start Date Expiration Date Visits V isits Requested Authorized [id number] Authorized 12/03/2021 12/03/20[address] Cuellar/retina PLEASE SCHEDULE ANYTIM E AFTER 11AM. Encounter Details Date Type Department Care Team Description 12/03/2021 Orders Only Department of Logan Ludwig Nonexudative Ophthalmology in [place] Age-Related Macular [place], [place] [address] [facility] Degeneration Early Dry [address] [place], [place] [phone] (Primary Dx) [phone] Social History Tobacco Use Types Packs/Day Years [...] or relatives? How often do you attend latter day or 1 to 4 times per year 12/2021 cheondoism services? Do you belong to any clubs or Yes 05/10/2021 organizations such as latter day groups, unions, fraJoturl or athletic groups, or school groups? How [...] place to sleep or slept in a prison (including now)? Education Answer Date Recorded What is the highest level of school you have Some college, n o degree 05/10/2021 completed or the highest degree you have received? 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 documented as of this encounter Plan of Treatment Scheduled Orders Name Type Priority Associated Diagnoses Order S chedule Optical Coherence Ophthalmology Routine Nonexudative Expected: Tomography - Age-Related Macular 05/05/19 23, Macula/Retina - OU - Degeneration Early D ry Expires: Both Eyes Stage Bilateral 03/05/2023 Scheduled Referrals Name Type Priority Associated Order Schedule Diagnoses Ophthalmology office Outpatient Referral Routine Expected: visit (clinic) 05/05/2022, Expires: 03/05/2023 documented as of this encounter Visit Diagnoses Diagnosis Nonexudative Age-Related Macular Degener ation Early Dry Stage Bilateral - Primary documented in this encounter
--- OUTSIDE RECORDS SUMMARY | 2022-01-25 10:51 | XMS_ITS | Encounter Summary ---
:1940 Author Organization [facility] Address [address] [place] [address] Care Team Providers Name Role Phone Unavailable [...] at Date Recorded Female 05/10/2021 3:14 PM JAVA CONSULTANT documented as of this encounter Plan of Treatment Not on filedocumented as of this encounter Procedures Procedure Name Priority Date/Time Associated Comments Diagnosis OPHTHALMOLOGY IMAGE Routine 05/11/2021 12:05 Resu lts for this EXAM AM JAVA CONSULTANT procedure are i n the results section. documented in this encounter Results Eyes Spectralis OCT-Ophthalmology Image Exam (05/11/2021 12:05 AM JAVA CONSULTANT) Specimen (Source) Anatomical Location Collection Method / Collectio n Time Received Time / Laterality Volume Narrative IIMS - 05/11/2021 4:24 PM JAVA CONSULTANT This order has been created and auto-finalized [...]
--- OUTSIDE RECORDS SUMMARY | 2022-01-25 10:51 | XMS_ITS | Encounter Summary ---
:1940 Author Organization [facility] Address [address] [place] [address] Care Team Providers Name Role Phone Unavailable Primary Care Provider Unavailable Encounter Details Date Type Department Care Team Description 04/14/2021 Orders Only Department of Shalini Mayen Exudative Age-Related Ophthalmology in COMT Macular Deg eneration [place], [place] Unspecified Stage [address] [facility] Right (HCC) (Primary [place], [place] Dx) [id number] Social History Tobacco Use Types Packs/Day Years [...] 1 to 4 times per year 12/2021 catholic services? Do you belong to any clubs [...] place to sleep or slept in a group home (including now)? Sex Assigned at Date Recorded Female 05/10/2021 3:14 PM WRIST LINER documented as of this encounter Plan of Treatment Not on filedocumented as of this encounter Results Fluorescein Angiography - OS - Left Eye (05/11/2021 4:24 PM WRIST LINER) Specimen (Source) Anatomical Location Collection Method / Collectio n Time Received Time / Laterality Volume Narrative OPHTHALMOLOGY IMAGING EXAM - 05/12/19 8:41 AM WRIST LINER Dye used is fluorescein. Fluorescein dose given is half dose. Notes See clinical note from 05/12/2021 ??for i nterpretation. Laura Ho MD Laura Ho M.D. OPHTH PHOTOGRAPHY Performing Organization Address City/[facility]/ZIP Code Phon e Number OPHTHALMOLOGY IMAGING EXAM Optical Coherence Tomography (OCT) - Macula/Retina - OU - Both Eyes (05/11/2021 4:24 PM WRIST LINER) Specimen (Source) Anatomical Location Collection Method / Collectio n Time Received Time / Laterality Volume Narrative OPHTHALMOLOGY IMAGING EXAM - 05/12/19 3:01 PM WRIST LINER Right Eye Reliability was good. OCT device used YUPPTV Spectralis . Left Eye Reliability was good. OCT device used YUPPTV Spectralis . Notes OCT macula 05/11/21: RE: drusen, no fluid LE: drusen, drusenoid PED, no fluid Laura oH M.D. OPHTH TOMOGRAPHY Performing Organization Address City/State/ZIP Code Phon e Number OPHTHALMOLOGY IMAGING EXAM Fundus Photos - OU - Both Eyes (05/11/2021 3:23 PM WRIST LINER) Specimen (Source) Anatomical Location Collection Method / Collectio n Time Received Time / Laterality Volume Narrative OPHTHALMOLOGY IMAGING EXAM - 05/12/19 8:41 AM WRIST LINER Right Eye Fundus photo type obtained is Color. Left Eye Fundus photo type obtained is Color. Notes Color photos: Consistent with exam both eyes ?? Laura Ho M.D. OPHTH PHOTOGRAPHY Performing Organization Address City/State/ZIP Code Phon e Number OPHTHALMOLOGY IMAGING EXAM documented in this encounter Visit Diagnoses Diagnosis Exudative Age-Related Macular Degenerati on Unspecified Stage Right (HCC) - Primary Exudative Age-Related Macular Degenerati on Unspecified Stage Right (HCC) Exudative Age-Related Macular Degenerati on Unspecified Stage Right (HCC) Exudative Age-Related Macular Degenerati on Unspecified Stage Right (HCC) - Primary Exudative Age-Related Macular Degenerati on Unspecified Stage Right (HCC) documented in this encounter
--- OUTSIDE RECORDS SUMMARY | 2022-01-25 10:51 | XMS_ITS | Encounter Summary ---
:1940 Author Organization [facility] Address [address] [place] [address] Care Team Providers Name Role Phone Unavailable Primary Care Provider Unavailable Reason for Visit Appointment Request (Routine) - Closed Specialty Diagnoses / Procedures Referred By Contact Refer red To Contact Ophthalmology Diagnoses Degeneration Macular Wet Exudative Degeneration Macular Dry Nonexudative Peter Landis D.O. [address] [facility] [address] [place] [address] Referral ID Status Reason Start Date Expiration Date Visits Requ ested Visits Authorized [id number] Closed 04/10/2021 04/10/2022 1 1 Encounter Details Date Type Department Care Team Description 05/12/2021 Comprehensive Visit Department of Laura Ho dative Ophthalmology in Peng Cordero Age-Related Macular [place], [place] [address] [facility] Degeneration [address] [place], [place] [address] Without Subfoveal [phone] Involvement Bilateral (Primary [phone] Dx) (Fax) Social History Tobacco Use Types Packs/Day Years [...] or relatives? How often do you attend evangelical or 1 to 4 times per year 12/2021 latter day services? Do you belong to any clubs or Yes 05/10/2021 organizations such as evangelical groups, unions, fraHstry or athletic groups, or school groups? How [...] at Date Recorded Female 05/10/2021 3:[address] ADMINISTRATIVE ENGINEER documented as of this encounter Patient Instructions Patient InstructionsLaura Ho M.D. - 05/12/2021 8:30 AM CST You have been diagnosed with [...] You may find the following information useful: https://www.[facility].org/diseases-conditions/njj-eycuzmk-bcynglncxwyu/symptoms -causes/syc-22284541 https://www.[facility].org/diseases-conditions/cwo-jqdgotu-qkzejdoxcfrh/symptoms -causes/syc-00727399 https://www.ADPube.com/watch?v=ijzs6stiAdV https://nei.nih.gov/health/maculardegen/armd_facts https://www.asrs.org/content/documents/fact_sheet_16_amd_new.pdf WAY ADMINISTRATIVE ENGINEER documented in this encounter Progress Notes Laura Ho M.D. - 05/12/2021 8:30 AM CST Pt was referred by Peter Landis D.O. for AMD evaluation. 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 Treated by Dr Landis in [place] # Cataracts, both eyes Impression 05/12/21: Vision is 20/25 both eyes. No evidence of CNV recurrence right eye today. Will monitor closely without injection. Plan 05/12/21: We recommended a good healthy diet, green leafy vegetables, fresh fruit, fish, eggs (occasionally), nuts, and avoidance of processed or high-fat foods. Avoid smoking or second hand smoke. Wear sunglasses or a hat for protection from sunlight. The AREDS-2 supplement contains vitamins C, E, Zinc, Copper, lutein and zeaxanthin. Fish oil supplements have not been shown to be helpful at slowing progression of age-related macular degeneration. Regular activities and/or exercise are helpful. Recommended Amsler grid monitoring at home 1-2 times a week. Followup: 4-6 wks with OCT OU WAY ADMINISTRATIVE ENGINEER documented in this encounter Plan of Treatment Not on filedocumented as of this encounter Visit Diagnoses Diagnosis Nonexudative Age-Related Macular Degener ation Advanced Atrophic Without Subfoveal Involvement Bilateral - Primary documented in this encounter
--- OUTSIDE RECORDS SUMMARY | 2022-01-25 10:51 | XMS_ITS | Clinical Summary ---
:1940 Author Organization [facility] Address [address] [place] [address] Care Team Providers Name Role Phone Unavailable Primary Care Provider Unavailable Source Comments Patient records contain information from all sites at [facility]. For routine questions regarding patient records, call [phone] during business hours, M-F 8:00 AM - 5:00 PM Central Time. Record requests for emergency care only can be directed to [phone] at any time.[facility] Allergies Active Allergy Reactions Severity Noted Date Comments Amoxicillin Other (see comments) 05/12/2021 nausea Crab GI intolerance, Headache 08/01/1975 Shellfish Derived GI intolerance 09/14/2013 Medications Medication Sig Dispensed Refills Start Date End Date Status atorvastatin (LIPITOR) Take 10 mg by 0 07/14/2013 Active 10 mg tablet mouth. calcium 0 05/02/2006 Active carbonate/vitamin D3 (CALCIUM 600 + D,3, ORAL) cetirizine (ZyrTEC) 10 Take 1 tablet by 0 05/02/1985 Active mg tablet mouth daily. diclofenac sodium Apply 2 g 0 02/26/2020 A ctive (VOLTAREN) 1 % gel topically 4 (four) times a day as needed. famotidine (PEPCID) 40 Take 40 mg by 0 05/02/2013 Active mg tablet mouth. levothyroxine Take 1 tablet by 0 05/02/1977 Active (SYNTHROID, mouth daily. LEVOTHROID) 100 mcg tablet verapamiL (CALAN) 120 0 05/02/1999 Active mg tablet vitamin E 400 unit Take 400 Units by 0 Active capsule mouth daily. lisinopriL Take 1 tablet by 0 10/31/2019 A ctive (PRINIVIL,ZESTRIL) 30 mouth daily. mg tablet Active Problems Problem Noted Date Nonexudative Age-Related Macular Degeneration Early Dr y Stage Bilateral 06/15/2021 Exudative Age-Related Macular Degeneration Unspecified Stage Right 06/15/2021 Encounters Date Type Specialty Care Team Description 12/03/2021 Office Visit Ophthalmology Bebe Villarreal, Christina.Fany Age-Related M acular Degeneration Ea rly Dry Stage Bilateral (Primary Dx) 12/03/2021 Ancillary Procedure Ophthalmology Laura Ho, Non exudative M.D. Age-Related Mac ular Degeneration Ea rly Dry Stage Bilateral 12/03/2021 Orders Only Ophthalmology Logan Ludwig, Nonexudat mateo C.O.A. Age-Related Mac ular Degeneration Ea rly Dry Stage Bilateral (Primary Dx) 12/03/2021 Ancillary Procedure from Last 3 Months Family History Medical History Relation Name Comments Stroke Father Cancer Father's Sister Hypertension Maternal Grandfather Hypertension Maternal Grandmother Blindness Mother Cancer Mother Glaucoma Mother Hypertension Mother Retinal detachment Mother Vision loss Mother Thyroid disease Sister Amblyopia Neg Hx Cataracts Neg Hx Diabetes Neg Hx Macular degeneration Neg Hx Retinal degeneration Neg Hx Strabismus Neg Hx Relation Name Status Comments Father Father's Sister Maternal Grandfather Maternal Grandmother Mother Sister Social History Tobacco Use Types Packs/Day Years [...] or relatives? How often do you attend amish or 1 to 4 times per year 12/2021 baptism services? Do you belong to any clubs or Yes 05/10/2021 organizations such as amish groups, unions, fraternal or athletic groups, or [...] place to sleep or slept in a assisted (including now)? Education Answer Date Recorded What is the highest level of school you have Some college, n o degree 05/10/2021 completed or the highest degree you have received? 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 Plan of Treatment Health Maintenance Due Date Last Done Comments Hepatitis C Screening 1940 Depression Screening (Annual PHQ-2) 05/02/2021 COVID-19 Vaccine (4 - Booster for 2021 05/14/2021, , Moderna series) 05/30/2020 Influenza Vaccine (#1) 2022 05/14/2021, 01/08/2020 Creatinine Level 06/30/2022 06/30/2021 Potassium Level 06/30/2022 06/30/2021 Sodium Level 06/30/2022 06/30/2021 Thyroid Stimulating Hormone (TSH) 06/30/2022 06/30/2021 test for thyroid function DTaP,Tdap,and Td Vaccines (2 - Td or 07/30/2024 07/30/2014 Tdap) Pneumococcal vaccine (65+ years) Completed 07/30/2014, , 04/12/2012 Zoster Vaccines Completed 10/15/2019, 07/08/2019, 06/02/2019 Fall Risk Screen (Annual) Completed 12/03/2021 Procedures Procedure Name Priority Date/Time Associated Diagnosis Comme nts OPTICAL COHERENCE Routine 12/03/2021 11:08 Nonexudative Result s for this TOMOGRAPHY - AM CDT Age-Related Macular procedur e are in MACULA/RETINA - OU - Degeneration Early t he results BOTH EYES Dry Stage Bilateral section. OPHTHALMOLOGY IMAGE Routine 12/03/2021 12:00 Resu lts for this EXAM AM CDT procedure are i n the results section. from Last 3 Months Results Optical Coherence Tomography (OCT) - Macula/Retina - OU - Both Eyes (12/03/2021 11:08 AM CDT) Specimen (Source) Anatomical Location Collection Method / Collectio n Time Received Time / Laterality Volume Narrative OPHTHALMOLOGY IMAGING EXAM - 12/04/19 22 11:43 AM CDT Right Eye Reliability was good. OCT device used Snappy shuttle SpectralCashkaro . Left Eye Reliability was good. OCT device used Snappy shuttle Spectralis . Notes See note for results Laura Ho M.D. OPHTH TOMOGRAPHY Performing Organization Address City/State/ZIP Code Phon e Number OPHTHALMOLOGY IMAGING EXAM Eyes Spectralis OCT-Ophthalmology Image Exam (12/03/2021 12:00 AM CDT) Specimen (Source) Anatomical Location Collection Method / Collectio n Time Received Time / Laterality Volume Narrative IIMS - 12/03/2021 11:12 AM CDT This order has been created and auto-finalized to support the import of images acquired without order. The clini madyson documentation to support these images can be found on the encounter leta t produced images. Provider Not In System IMG NON RAD IMAGING PROCEDUR ES Performing Organization Address City/State/ZIP Code Phon e Number IIMS IIMS NA from Last 3 Months Insurance Payer Benefit Plan Subscriber ID Effective Phone Address Typ e / Group Dates MEDICARE MEDICARE A [id number] 2007-Prese [address] Medicare [place] [address] FOR FOR [id number] 2021-Pre [phone] [address] Indemnity [place] [address] [phone] [address]Home) [place], [place] [address]
--- OUTSIDE RECORDS SUMMARY | 2022-01-25 10:51 | XMS_ITS | Encounter Summary ---
:1940 Author Organization [facility] Address [address] [place] [address] Care Team Providers Name Role Phone Unavailable Primary Care Provider Unavailable Encounter Details Date Type Department Care Team Description 04/15/2021 Clinical Communication Department of Laura Ho Ophthalmology in [place], [place] [address] [facility] [address] [place] [id number] [phone] Social History Tobacco Use Types Packs/Day Years [...] or relatives? How often do you attend anglican or 1 to 4 times per year 12/2021 oriental orthodox services? Do you belong to any clubs or Yes 05/10/2021 organizations such as anglican groups, unions, fraternal or athletic groups, or [...] place to sleep or slept in a retirement (including now)? Sex Assigned at Date Recorded Female 05/10/2021 3:14 PM FLEECE TIER documented as of this encounter Miscellaneous Notes Telephone Encounter - Raul Chery - 04/15/2021 8:54 AM CST Scheduled and confirmed with patient. CE TIER documented in this encounter Plan of Treatment Not on filedocumented as of this encounter Visit Diagnoses Not on filedocumented in this encounter
--- OUTSIDE RECORDS SUMMARY | 2022-01-25 10:51 | XMS_ITS | Encounter Summary ---
:1940 Author Organization [facility] Address [address] [place] [address] Care Team Providers Name Role Phone Unavailable Primary Care Provider Unavailable Encounter Details Date Type Department Care Team Description 12/03/2021 Ancillary Procedure Department of Ophthalmology Social History [...] or relatives? How often do you attend buddhism or 1 to 4 times per year 12/2021 confucianist services? Do you belong to any clubs or Yes 05/10/2021 organizations such as buddhism groups, unions, fraternal or athletic groups, or [...] to sleep or slept in a senior living (including now)? Education Answer Date Recorded What is the highest level of school you have Some college, n o degree 05/10/2021 completed or the highest degree you have received? 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 documented in this encounter Results Eyes Spectralis OCT-Ophthalmology Image Exam (12/03/2021 12:00 [...]
--- OUTSIDE RECORDS SUMMARY | 2022-01-25 10:51 | XMS_ITS | Encounter Summary ---
:1940 Author Organization [facility] Address [address] [place] [address] Care Team Providers Name Role Phone Unavailable Primary Care Provider Unavailable Encounter Details Date Type Department Care Team Description 05/11/2021 Ancillary Department of Laura Ho Exudjennifer Procedure Ophthalmology bryanna Cordero M.D. Age-Related Macular [place], [place] [address] [facility] Degeneration [address] [place], [place] [address] Right ([facility]) [phone] Social History Tobacco Use Types Packs/Day Years [...] 1 to 4 times per year 12/2021 sabianism services? Do you belong to any clubs or Yes 05/10/2021 organizations such as evangelical groups, unions, fraternal or athletic groups, or [...] at Date Recorded Female 05/10/2021 3:14 PM TIMING INSPECTOR documented as of this encounter Plan of Treatment Not on filedocumented as of this encounter Procedures Procedure Name Priority Date/Time Associated Diagnosis Comme nts FUNDUS PHOTOS - OU Routine 05/11/2021 3:23 PM Exudative Age-Re lated Results for this - BOTH EYES TIMING INSPECTOR Macular Degeneration procedu re are in Unspecified Stage the result s Right (HCC) section. documented in this encounter Results Fundus Photos - OU - Both Eyes (05/11/2021 3:23 PM TIMING INSPECTOR) Specimen (Source) Anatomical Location Collection Method / Collectio n Time Received Time / Laterality Volume Narrative OPHTHALMOLOGY IMAGING EXAM - 05/12/19 22 8:41 AM TIMING INSPECTOR Right Eye Fundus photo type obtained is [...]
--- OUTSIDE RECORDS SUMMARY | 2022-01-25 10:51 | XMS_ITS | Encounter Summary ---
:1940 Author Organization [facility] Address [address] [place] [address] Care Team Providers Name Role Phone Unavailable [...] at Date Recorded Female 05/10/2021 3:14 PM INTELLIGENCE ENGINEER documented as of this encounter Plan of Treatment Not on filedocumented as of this encounter Procedures Procedure Name Priority Date/Time Associated Comments Diagnosis OPHTHALMOLOGY IMAGE Routine 05/11/2021 12:00 Resu lts for this EXAM AM INTELLIGENCE ENGINEER procedure are i n the results section. documented in this encounter Results Eyes Color-Ophthalmology Image Exam (05/11/2021 12:00 AM INTELLIGENCE ENGINEER) Specimen (Source) Anatomical Location Collection Method / Collectio n Time Received Time / Laterality Volume Narrative IIMS - 05/11/2021 3:20 PM INTELLIGENCE ENGINEER This order has been created and auto-finalized [...]
--- OUTSIDE RECORDS SUMMARY | 2022-01-25 10:52 | XMS_ITS | Continuity of Care Document ---
:1940 Author Organization [facility] Care Team Providers Name Role Phone [facility] Unavailable Unavailable Problems Combined list of problems from Department of Defense and Veterans Affairs facilities. It does not include entries that were removed or entered in error. Problem Status Onset Problem Type Date of Comments Source Date Resolution Nodules - Active Condition DoD Subcutaneous visit for: Active Condition DoD screening exam lipoid disorders hypertension Active Condition DoD systemic sinusitis Active Condition DoD conjunctivitis Inactive Condition DoD acute both eyes lump in / on the Active Condition right lowe r DoD skin leg posteriorly; probable lipoma; if persists may need ultrasound for eval. visit for: Active Condition DoD screening exam malignant neoplasm breast visit for: Active Condition DoD administrative purpose visit for: issue Inactive Condition DoD repeat prescription for medication hyperlipidemia Active Condition DoD Laboratory Studies Inactive Condition f/u afte r DoD tests Administrative Inactive Condition Questionairr e DoD Evaluation complete Services menopause Active Condition DoD allergies Active Condition DoD essential Active Condition restart DoD hypertension taking bp meds esophageal reflux Active Condition Do D hypothyroidism Active Condition DoD joint pain, Inactive Condition DoD localized in the shoulder periarthritis of Active Condition DoD shoulder allergic rhinitis Active Condition Do D - pollen mitral Active Condition DoD regurgitation rhythm disorder Active Condition DoD menopause Active Condition DoD symptomatic pain in leg lower Active Condition Do D joint pain, Active Condition DoD 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 Medications provided include 1) outpatient medications from the last 15 months, and 2) patient-reported medications. Medication Details Route Status Patient Prescription Prescription Last Ordering Order Source Instructions Expires Number Dispense Provider Date Date ATORVASTATI Active [id number] CARRI / Pharmac N CALCIUM 2 R,2021 y Data (atorvastat Transac in tion calcium), Service 10 MG, Facilit TABLET, y ORAL, [employer] 1000 ea. BOTTLE ATORVASTATI Active [id number] VÍCTOR ARORA / Pharmac N CALCIUM 1 ORG2020 y Data (atorvastat Transac in tion calcium), Service 10 MG, Facilit TABLET, y ORAL, [employer] 1000 ea. BOTTLE CETIRIZINE Active [id number] RUNZHEIME 10/31 3/ Pharmac HCL 2 R,2021 y Data (cetirizine Transac HCl), 10 tion MG, TABLET, Service ORAL, MAJOR Facilit PHARMACEU, y 90 ea. BOTTLE CETIRIZINE Active [id number] ARORA,GE 1/ Pharmac HCL 1 ORG2021 y Data (cetirizine Transac HCl), 10 tion MG, TABLET, Service ORAL, MAJOR Facilit PHARMACEU, y 90 ea. BOTTLE CETIRIZINE Active [id number] ARORA,GE 10/31 6/ Pharmac HCL 1 2020 y Data (cetirizine Transac HCl), 10 tion MG, TABLET, Service ORAL, MAJOR Facilit PHARMACEU, y 90 ea. BOTTLE CYCLOBENZAP Active [id number] STONEY,[place] / Pharmac RINE HCL 1 D 2020 y Data (cyclobenza Transac jessica HCl), tion 10 MG, Service TABLET, Facilit ORAL, y [email or web address] 1000 ea. BOTTLE FAMOTIDINE Active [id number] RUNZHEIME 10/31 3/ Pharmac (famotidine 2 R,2021 y Data ), 40 MG, Transac TABLET, tion ORAL, Service [employer] Facilit [place],, 100 y ea. BOTTLE FAMOTIDINE Active [id number] RUNZHEIME 11/30 1/ Pharmac (famotidine 2 R,2021 y Data ), 40 MG, Transac TABLET, tion ORAL, Service [employer] Facilit [place],, 100 y ea. BOTTLE FAMOTIDINE Active [id number] ARORA,GE 12 6/ Pharmac (famotidine 1 2020 y Data ), 40 MG, Transac TABLET, tion ORAL, Service [employer] Facilit [place],, 100 y ea. BOTTLE FAMOTIDINE Active [id number] ARORA,GE 03 8/ Pharmac (famotidine 2 ORGE 2021 y Data ), 40 MG, Transac TABLET, tion ORAL, Service [employer] Facilit [place],, 100 y ea. BOTTLE FAMOTIDINE Active [id number] ARORA,GE 09/30 1/ Pharmac (famotidine 2 ORGE 2021 y Data ), 40 MG, Transac TABLET, tion ORAL, Service [employer] Facilit [place],, 100 y ea. BOTTLE FAMOTIDINE Active [id number] ARORA,GE 2/ Pharmac (FAMOTIDINE 1 ORGE 2020 y Data ), 40 MG, Transac TABLET, tion ORAL, [employer], Service INC[employer] 100 Facilit ea. BOTTLE y GABAPENTIN Active [id number] ARORA,GE 10 2/ Pharmac (gabapentin 1 ORGE 2020 y Data ), 600 MG, Transac TABLET, tion ORAL, [facility] PHA, 500 y ea. BOTTLE HYDROCODONE Active [id number] [place] LUA / Pharmac -ACETAMINOP 1 D 2020 y Data HEN Transac (hydrocodon tion e Service bitartrate/ Facilit acetaminoph y en), 5 MG-325MG, TABLET, ORAL, [facility] PHARMACE, 100 ea. BOTTLE IBUPROFEN Active [id number] PRAMOD 11/08 Pharmac (ibuprofen) 2020 y Data , 800 MG, Transac TABLET, tion ORAL, Service STRIDE Facilit PHARMA, 500 y ea. BOTTLE LEVOTHYROXI Active [id number] RUNZHEIME / Pharmac NE SODIUM 2 R,2021 y Data (levothyrox Transac ine tion sodium), Service 100 MCG, Facilit TABLET, y ORAL, [employer], 1000 ea. BOTTLE LEVOTHYROXI Active [id number] RUNZHEIME / Pharmac NE SODIUM 2 R,2021 y Data (levothyrox Transac ine tion sodium), Service 100 MCG, Facilit TABLET, y ORAL, [employer], 1000 ea. BOTTLE LEVOTHYROXI Active [id number] ARORA,GE / Pharmac NE SODIUM ORG2020 y Data (levothyrox Transac ine tion sodium), Service 100 MCG, Facilit TABLET, y ORAL, [employer], 1000 ea. BOTTLE LEVOTHYROXI Active [id number] ARORA,GE / Pharmac NE SODIUM 1 ORG2020 y Data (levothyrox Transac ine tion sodium), Service 100 MCG, Facilit TABLET, y ORAL, [employer], 1000 ea. BOTTLE LEVOTHYROXI Active [id number] ARORA,GE / Pharmac NE SODIUM 2 2021 y Data (levothyrox Transac ine tion sodium), Service 100 MCG, Facilit TABLET, y ORAL, [employer], 1000 ea. BOTTLE LEVOTHYROXI Active [id number] ARORA,GE / Pharmac NE SODIUM 2 2021 y Data (levothyrox Transac ine tion sodium), Service 100 MCG, Facilit TABLET, y ORAL, [employer], 1000 ea. BOTTLE LISINOPRIL Active [id number] RUNZHEIME 10/31 3/ Pharmac (lisinopril 2 R,2021 y Data ), 30 MG, Transac TABLET, tion ORAL, Service EXELAN Facilit PHARMACE, y 500 ea. BOTTLE LISINOPRIL Active [id number] ARORA,GE 11/30 6/ Pharmac (lisinopril 1 ORGE 2020 y Data ), 30 MG, Transac TABLET, tion ORAL, Service EXELAN Facilit PHARMACE, y 500 ea. BOTTLE LISINOPRIL Active [id number] ARORA,GE 2/ Pharmac (lisinopril 1 ORGE 2020 y Data ), 30 MG, Transac TABLET, tion ORAL, Service EXELAN Facilit PHARMACE, y 500 ea. BOTTLE LISINOPRIL Active [id number] ARORA,GE 03/03 4/ Pharmac (lisinopril 1 ORGE 2020 y Data ), 30 MG, Transac TABLET, tion ORAL, Service EXELAN Facilit PHARMACE, y 500 ea. BOTTLE LISINOPRIL Active [id number] ARORA,GE 05/03 4/ Pharmac (lisinopril 2 ORG2021 y Data ), 30 MG, Transac TABLET, tion ORAL, Service EXELAN Facilit PHARMACE, y 500 ea. BOTTLE LISINOPRIL Active [id number] ARORA,VÍCTOR 07/31 0/ Pharmac (lisinopril 2 ORGE 2021 y Data ), 30 MG, Transac TABLET, tion ORAL, Service EXELAN Facilit PHARMACE, y 500 ea. BOTTLE OXYCODONE Active [id number] BLOCK,AHSAN 07/24 / Pharmac HCL 2 NIFER 2021 y Data (OXYCODONE Transac HCL), 5MG, tion TABLET, Service ORAL, Facilit [employer] 100 ea. BOTTLE OXYCODONE-A Active [id number] CHURCHILL 07/29 / Pharmac CETAMINOPHE 2 2021 Data N Transac (OXYCODONE tion HCL/ACETAMI Service NOPHEN), Facilit 5MG-325MG, y TABLET, ORAL, [employer]ALL[employer]RT PHARM, 500 ea. BOTTLE OXYCODONE-A Active [id number] ANDREY, 07/25 / Pharmac CETAMINOPHE 2 2021 y Data N Transac (OXYCODONE tion HCL/ACETAMI Service NOPHEN), Facilit 5MG-325MG, y TABLET, ORAL, [employer] PHARM, 500 ea. BOTTLE PEG-3350 Active [id number] GADEK, 01/12/ Ph armac (SODIUM 2 2021 Data CHLORIDE/NA Transac HCO3/KCL/PE tion G), 420G, Service SOLN RECON, Facilit ORAL, y AFFORDABLE PHAR, 4000 ml BOTTLE PREDNISONE Active [id number] STONEYAZ 03/02 9/ Pharmac (prednisone 1 D 2020 y Data ), 20 MG, Transac TABLET, tion ORAL, Service MYLAN, 1000 Facilit ea. BOTTLE y TRAMADOL Active [id number] CHURCHILL 08/09/ P harmac HCL 2 2021 y Data (TRAMADOL Transac HCL), 50MG, tion TABLET, Service ORAL, Facilit AMNEAL y PHARMACE, 1000 ea. BOTTLE VERAPAMIL Active [id number] RUNZHEIME 11/21 / Pharmac ER 2 R,CRISS 2021 y Data (VERAPAMIL Transac HCL), 120 tion MG, TABLET Service ER, ORAL, Facilit GLENMARK y PHARMA, 100 ea. BOTTLE VERAPAMIL Active [id number] ARORA,GE 02/21 / Pharmac ER 1 ORGE 2020 y Data (VERAPAMIL Transac HCL), 120 tion MG, TABLET Service ER, ORAL, Facilit GLENMARK y PHARMA, 100 ea. BOTTLE VERAPAMIL Active [id number] ARORA,GE 05/18 / Pharmac ER 2 ORGE 2021 y Data (VERAPAMIL Transac HCL), 120 tion MG, TABLET Service ER, ORAL, Facilit GLENMARK y PHARMA, 100 ea. BOTTLE VERAPAMIL Active [id number] ARORA,GE 08/20 / Pharmac ER 2 ORGE 2021 y Data (VERAPAMIL Transac HCL), 120 tion MG, TABLET Service ER, ORAL, Facilit GLENMARK y PHARMA, 100 ea. BOTTLE VERAPAMIL Active [id number] ARORA,GE 11/19 / Pharmac ER 2 ORGE 2021 y Data (VERAPAMIL Transac HCL), 120 tion MG, TABLET Service ER, ORAL, Facilit GLENMARK y PHARMA, 100 ea. BOTTLE VERAPAMIL Active [id number] ARORA,GE 11/29 / Pharmac ER 1 ORGE 2020 y Data (VERAPAMIL Transac HCL), 120 tion MG, TABLET Service ER, ORAL, Facilit GLENMARK y PHARMA, 100 ea. BOTTLE Allergies, Adverse Reactions, Alerts Combined list of allergies from Department of Defense and Veterans Affairs facilities. It does not include entries that were removed or entered in error. Substance Category Reaction Severity Reaction Status Date Comments S ource type Reported No Known Drug Drug active Abelardo nd Allergies allergy allergy 8 [facility] [place] [place] Immunizations Combined list of available immunizations from the Department of Defense and Veterans Affairs facilities. Immunization Series Date Administered Site Reaction Lot CVX Drug St atus Comments Source Given By Number Code Respiratory Therapy Manager influenza, 01/07/ KATE () Not influenza DoD high-dose, 2020 AN, Given , quadrivalent high-do se , quadrival ent zoster 10/14/ CONRAD, () Not zoster Do D recombinant 2020 Given recombin a nt zoster 07/07/ CONRAD, () Not zoster Do D recombinant 2020 Given recombin a nt Encounters Combined list of: 1) Encounters from Department of Veterans Affairs facilities going back up to the last 18 months. 2) Encounters from the Department of Defense facilities going back up to 280 months. Location Location Encounter Encounter Reason Attending ADM DC Stat us Disposition Source Details Type Number For Provider Date Date Visit TELE [id number] [facility] CRUZITO, 09/29 21 CONSULT ion JORJE S /2006 Medical refill Group [employer] [place] [employer] (Family Practic e Team 2) TELE [id number] [facility] [place], 10/04 21 CONSULT ion JORJE S /2005 [facility]ill Group [employer] [employer] (Family Practic e Team 2) OUTPATIENT [id number] INITIAL OMAR, 02/22 Release d w/o Emma APPT THIERNO Limitations [facility] [place] [place], [place] [facility]) OUTPATIENT [id number] general OMAR, 05/06 Release d w/o Emma phy THIERNO Limitations [facility] [place] [facility] OUTPATIENT [id number] ongoing OMAR, 08/18 Release d w/o Emma problem [facility]IER[facility] Limitations [facility] [place], [place] [facility] TELE [id number] pt NARGIS, 09/06 Irelan d CONSULT steff JEFFREY [facility] [place], last pm [place] [facility] ref for shaw[facility] OUTPATIENT [id number] SHILA Dimas 01/31 Rel eased w/o Emma s to Limitations [facility] [place] [facility] TELE [id number] RF JOSE, 03/07 Emma CONSULT ROSANA Chamberlain [facility] [place], [phone] [place] -[facility]) OUTPATIENT [id number] EARNESTINE TA, 03/15 Released w/o Landstu EDELTRA Limitations [facility]l [facility] TELE [id number] lanceo DELFINO, 04/12 Emma CONSULT DARINEL R [facility] [place] [facility] TELE [id number] refill SHILA MONTA[place] 04/19 Rosey land CONSULT verapam [facility] [place] [facility] OUTPATIENT [id number] MEDICAT SHILA [place] 05/24 Rel eased w/o Emma ION Limitations [facility] [place], [place] OF and LEFT [facility]) Procedures Combined list of: 1) Procedures from Department of Veterans Affairs facilities going back up to the last 18 months, not all [place] non-surgical procedures are included; 2) All procedures from the Department of Defense facilities. Procedure Procedure Type Code Date Perfomer Comments Sourc e BLOOD,OCCULT,BY 10/23/2004 DoD PEROXIDASE ACTIV (EG,GUAIAC),QUAL;FECES, CONSECUTIVE COLLECTED SPECIMENS W SING DETERMIN,FOR COLORECTAL NEOPLAS SCREEN (IE,PAT PROVIDE 3 CARDS/SING TRIPLE CARD FOR CONSECUTIVE COLLECT) APPLICATION OF A 08/08/2003 Do D MODALITY TO 1 OR MORE AREAS; ULTRASOUND, EACH 15 MINUTES APPLICATION OF A 08/06/2003 Do D MODALITY TO 1 OR MORE AREAS; ULTRASOUND, EACH 15 MINUTES APPLICATION OF A 08/01/2003 Do D MODALITY TO 1 OR MORE AREAS; IONTOPHORESIS, EACH 15 MINUTES THERAPEUTIC PROCEDURE, 07/30/2003 DoD 1 OR MORE AREAS, EACH 15 MINUTES; THERAPEUTIC EXERCISES TO DEVELOP STRENGTH AND ENDURANCE, RANGE OF MOTION AND FLEXIBILITY PHYSICAL THERAPY 07/22/2003 Do D RE-EVALUATION APPLICATION OF A 07/19/2003 Do D MODALITY TO 1 OR MORE AREAS; IONTOPHORESIS, EACH 15 MINUTES APPLICATION OF A 07/11/2003 Do D MODALITY TO 1 OR MORE AREAS; IONTOPHORESIS, EACH 15 MINUTES APPLICATION OF A 2003 Do D MODALITY TO 1 OR MORE AREAS; IONTOPHORESIS, EACH 15 MINUTES APPLICATION OF A 07/04/2003 Do D MODALITY TO 1 OR MORE AREAS; IONTOPHORESIS, EACH 15 MINUTES BLOOD,OCCULT,BY 07/04/2003 DoD PEROXIDASE ACTIV (EG,GUAIAC),QUAL;FECES, CONSECUTIVE COLLECTED SPECIMENS W SING DETERMIN,FOR COLORECTAL NEOPLAS SCREEN (IE,PAT PROVIDE 3 CARDS/SING TRIPLE CARD FOR CONSECUTIVE COLLECT) SELF-CARE/HOME 07/02/2003 DoD MANAGMENT TRAIN (EG,ACT OF DAILY LIVING (ADL) &COMPENSAT TRAIN,MEAL PREPARATION,SAFETY PROCS,AND INSTRUCT IN USE OF ASST TECHNOLOGY DEV/ADPT EQUIP) DIR ONE-ON-ONE CONT,EA 15 MINUTES Social History Combined list of available smoking, tobacco, and other social history from Department of Defense andVeterans Affairs facilities. Social History Type Response Date Comment Source This section is an empty social history section. DoD
== END 2022-01-25 10:49 | disposition home or self-care (01) ==
LOC: OP CLINIC 10:49
PROVIDERS: PCP Family Medicine; Visit Provider Internal Medicine Gastroenterology
DX: R19.5 Other fecal abnormalities (principal); K63.5 Polyp of colon; K64.8 Other hemorrhoids; K73.0 Chronic persistent hepatitis, not elsewhere classified
CPT/HCPCS: 45385; 88305; 99153; J2250; J3010

== ENCOUNTER 2022-11-16 11:45 | Outpatient (RCR) | payer MEDICARE, OTHER, SELFPAY | END 2023-03-16 23:59 | disposition home or self-care (01) | PROVIDERS: PCP Family Medicine; Visit Provider Family Medicine | DX: S82.892S Other fracture of left lower leg, sequela (principal); G57.01 Lesion of sciatic nerve, right lower limb; M54.2 Cervicalgia; Z51.89 Encounter for other specified aftercare | CPT/HCPCS: 97110; 97140; 97163 ==

== ENCOUNTER 2023-01-11 07:40 | Outpatient (CLI) | payer MEDICARE, OTHER, SELFPAY | END 2023-01-11 07:41 | disposition home or self-care (01) | LOC: INJ CL 07:40 | PROVIDERS: PCP Family Medicine; Visit Provider Family Medicine | DX: M47.816 Spondylosis without myelopathy or radiculopathy, lumbar region (principal) | CPT/HCPCS: 64493; J0702; Q9966 ==